=== PATIENT | female | born 1990 | race African-American/Black ===

== ENCOUNTER 2019-03-11 20:05 | Emergency (ER) | payer MEDICAID ==
[~2019-03-11] VITALS: Ht 165.1 cm; Wt 61.2 kg
[~2019-03-11 20:05] MED LIST: ATIVAN1 MG ORAL; DEPAKOTE500 MG PO; FOLIC ACID1 MG ORAL; QUETIAPINE FUM100 MG ORAL
--- NOTE | 2019-03-11 20:10 | NUR ---
ED Nurse Note: Recieved pt JULITA from home with c/o seizures x 30 today, pt is on gurney awake, alert and oriented x 4 and yelling to give her morphine medication, pt is non-cooperative, denies cp, no sob or labored breathing, no s/s of post ictal state, pt gowned and assisted to [place], side rails padded and placed on seizure precautions, will resume care as ordered and closely monitor.
--- NOTE | 2019-03-11 21:02 | Emergency Room Report ---
History of Present Illness General Chief Complaint: Pain Source: Patient, Medical Record, EMS Present Illness HPI Is a 28-year-old female coming from store with chief complaint of body pain. She told EMS that she has body pain all day. Here she requested morphine. When I examine her, she told me that she had a history of seizure and had 22 seizure today. She said that she has nausea and vomiting. Says she cannot take her Depakote even though she is allergic to Depakote. She denies any other trauma. No oral trauma. No incontinence of bowel or urine. No fever chills. Denies any other complaint. Allergies: Coded Allergies: DIVALPROEX SODIUM (Verified Allergy, Unknown, 01/19/12) Patient History Past Medical History: see triage record, old chart reviewed Nursing Documentation-[facility] Past Medical History: No History, Except For Hx Hypertension: Yes History Of Psychiatric Problem: Yes Hx Seizures: Yes Review of Systems Eye: Denies: eye pain, blurred vision ENT: Denies: ear pain, nose congestion, throat swelling Respiratory: Denies: cough, shortness of breath Cardiovascular: Denies: chest pain, palpitations Gastrointestinal: Denies: abdominal pain, diarrhea, nausea, vomiting Musculoskeletal: Denies: back pain, joint pain Skin: Denies: rash Neurological: Denies: headache, numbness Endocrine: Denies: increased thirst, increased urine Hematologic/Lymphatic: Denies: easy bruising All Other Systems: negative except mentioned in HPI Physical Exam Vital Signs Date Time Temp Pulse Resp B/P (MAP) Pulse Ox O2 Delivery O2 Flow Rate FiO2 03/11/19 20:02 98.6 108 16 129/89 (102) 99 Room Air Vitals normal Sp02 EP Interpretation: reviewed, normal General Appearance: well appearing, no apparent distress, alert Head: normocephalic, atraumatic Eyes: bilateral eye PERRL, bilateral eye EOMI ENT: hearing grossly normal, normal pharynx Neck: full range of motion, supple, no meningismus Respiratory: chest non-tender, lungs clear, normal breath sounds Cardiovascular #1: regular rate, rhythm, no murmur Gastrointestinal: normal bowel sounds, non tender, no mass, no organomegaly, no bruit, non-distended Musculoskeletal: back normal, gait/station normal, normal range of motion Psychiatric: other - Flat affect Medical Decision Making Diagnostic Impression: Primary Impression: Pain ER Course Patient complaining of body pain and seizure. I doubt that she had any seizure. She says she is want to go to sleep and requesting morphine shots. Vitals are unremarkable. Will discharge home. I suspect this is more psychogenic than true seizure. Chest X-Ray Diagnostic Results Chest X-Ray Diagnostic Results : Chest X-Ray Ordered: Yes # of Views/Limited/Complete: 1 View Indication: Chest Pain EP Interpretation: Yes Interpretation: no consolidation, no effusion, no pneumothorax, no acute cardiopulmonary disease Impression: No acute disease Electronically Signed by: Richard Sam MD CT/MRI/US Diagnostic Results CT/MRI/US Diagnostic Results : Imaging Test Ordered: CT head Impression Negative per radiologist Last Vital Signs Date Time Temp Pulse Resp B/P (MAP) Pulse Ox O2 Delivery O2 Flow Rate FiO2 03/11/19 20:02 98.6 108 16 129/89 (102) 99 Room Air Status: improved Disposition: HOME, SELF-CARE Condition: Stable Additional Instructions: Follow-up with your doctor in 7 days. Abstain from any drugs or alcohol. Return if symptoms worsen. Richard Sam MD Mar 11, 2019 21:02
--- NOTE | 2019-03-11 21:08 | Diagnostic Imaging Report ---
Indications: Dizziness and seizures Technique: Spiral acquisitions obtained through the brain. Angled axial and coronal 5 x 5 mm slices were reconstructed. Total dose length product 1334 mGycm. CTDI vol(s) 60 mGy. Dose reduction achieved using automated exposure control Comparison: None. Findings: No acute intracranial hemorrhage or edema. No mass effect or midline shift. Normal noguera-white differentiation. Normal size ventricles and extra axial CSF spaces. Visualized orbits are unremarkable. There is minimal mucosal thickening or polyposis in the left maxillary sinus. The mastoids are clear. The calvarium is intact Impression: Negative This agrees with the preliminary interpretation provided overnight by [facility]erad[facility] service. The CT scanner at [facility] is accredited by the [employer] and the scans are performed using protocols designed to limit radiation exposure to as low as reasonably achievable to attain images of sufficient resolution adequate for diagnostic evaluation.
[2019-03-11 21:45] VITALS: BP 124/87
--- NOTE | 2019-03-11 21:45 | NUR ---
ED Nurse Note: Pt being D/C to home, awake, alert and oriented x 4, ambulatory, pt given food and juice, tolerated well, pt states her mother is coming to get her, pt deneis cp, sob, or pain at this time, no sz activity noted, pt given f/u info and after care instructions, pt re-verbalizes importance for f/u and s/s to continue to monitor for, pt left ambulating with steady gait, nad noted during d/c to home.
--- NOTE | 2019-03-12 14:01 | Cardiology Report ---
APPROVED REPORT EKG Measurement Heart [id number] Sinus tachycardia Nonspecific T wave abnormality Abnormal ECG
--- NOTE | 2019-03-12 17:02 | Diagnostic Imaging Report ---
Indication: Chest pain, cough Technique: One view of the chest Comparison: none Findings: No acute infiltrates, effusions, or congestion. Tortuous calcified aorta. Normal heart size. Upper mediastinum unremarkable. Impression: No acute process.
== END 2019-03-11 22:00 | disposition home or self-care (01) ==
LOC: EDBD 20:05 → EMR 20:20
DX: R52 Pain, unspecified (principal); R07.9 Chest pain, unspecified; I10 Essential (primary) hypertension; Z88.8 Allergy status to other drugs, medicaments and biological substances; R42 Dizziness and giddiness; R56.9 Unspecified convulsions
CPT/HCPCS: 70450; 71045; 93005; Z7502; 99284

== ENCOUNTER 2019-03-12 00:18 | Emergency (ER) | payer MEDICAID ==
[~2019-03-12] VITALS: Ht 165.1 cm; Wt 56.7 kg
--- NOTE | 2019-03-12 00:39 | NUR ---
ED Nurse Note: patient ambulated to ed with behavioural complaint. patient discharged from d ed 2200. patient denies hi, si, and pain. patient states 'i just want to sleep'. provided pt with blanket and nourishment. ao4. nad. vss.
[2019-03-12 00:43] VITALS: BP 104/68
--- NOTE | 2019-03-12 01:18 | Emergency Room Report ---
History of Present Illness General Chief Complaint: Behavioral Complaint Source: Patient Present Illness HPI Is a 28-year-old female whom I just discharged. She was in the waiting room and is out of check back in. She she came by ambulance from a store. She claimed that she is not homeless. She was waiting in the waiting room and wanted a place to lay down so she checked in. She claimed that she has abdominal pain and both suicidal. She has no particular plan. Even though she has abdominal pain she ate and drank here without any problem. She refused to give any blood work or urine. When I asked if she is taking any drugs, she is to answer. She is requesting morphine. No other complaint. Allergies: Coded Allergies: DIVALPROEX SODIUM (Verified Allergy, Unknown, 01/19/12) Patient History Past Medical History: see triage record, old chart reviewed Past Surgical History: none Pertinent Family History: none Last Menstrual Period: 03/01/19 Now: No : 1 Para: 1 Immunizations: other Reviewed Nursing Documentation: PMH: Agreed; PSxH: Agreed Nursing Documentation-[facility] Past Medical History: No History, Except For Hx Hypertension: Yes Hx Diabetes: Yes Hx Seizures: Yes Review of Systems Eye: Denies: eye pain, blurred vision ENT: Denies: ear pain, nose congestion, throat swelling Respiratory: Denies: cough, shortness of breath Cardiovascular: Denies: chest pain, palpitations Gastrointestinal: Reports: abdominal pain; Denies: diarrhea, nausea, vomiting Musculoskeletal: Denies: back pain, joint pain Skin: Denies: rash Neurological: Denies: headache, numbness Endocrine: Denies: increased thirst, increased urine Hematologic/Lymphatic: Denies: easy bruising All Other Systems: negative except mentioned in HPI Physical Exam Vital Signs Date Time Temp Pulse Resp B/P (MAP) Pulse Ox O2 Delivery O2 Flow Rate FiO2 03/12/19 00:19 99.0 123 17 104/68 (80) 95 Room Air Vitals normal Sp02 EP Interpretation: reviewed, normal General Appearance: well appearing, no apparent distress, alert Head: normocephalic, atraumatic Eyes: bilateral eye PERRL, bilateral eye EOMI ENT: hearing grossly normal, normal pharynx Neck: full range of motion, supple, no meningismus Respiratory: chest non-tender, lungs clear, normal breath sounds Cardiovascular #1: regular rate, rhythm, no murmur Gastrointestinal: normal bowel sounds, non tender, no mass, no organomegaly, no bruit, non-distended Musculoskeletal: back normal, gait/station normal, normal range of motion Psychiatric: mood/affect normal Medical Decision Making Diagnostic Impression: Primary Impression: Behavioral disorder Additional Impression: Abdominal pain Qualified Codes: R10.84 - Generalized abdominal pain ER Course [place] with abdominal pain and behavior disorder. She has no particular plan for suicide. She may have be on opiates or other drug use. She refused a urine sample. She is want a place to sleep and something to eat. I told patient will let her sleep. Discharge in the morning. I see no evidence of acute abdomen. Before she left here, she was eating and drinking without any problem. I see no evidence of an acute abdomen. Last Vital Signs Date Time Temp Pulse Resp B/P (MAP) Pulse Ox O2 Delivery O2 Flow Rate FiO2 03/12/19 00:43 98 17 Room Air 03/12/19 00:43 99.0 104/68 95 Status: improved Disposition: HOME, SELF-CARE Condition: Stable Referrals: NON PHYSICIAN (PCP) Patient Instructions: Self-Destructive Behavior Additional Instructions: Follow-up with your doctor in 7 days. Stop going to different hospital for pain medication. Return worse. Richard Sam MD Mar 12, 2019 01:18
--- NOTE | 2019-03-12 01:47 | NUR ---
ED Nurse Note: patient sleeping in bed with no acute distress. respirations even and unlabored
[2019-03-12 03:00] VITALS: BP 110/68
--- NOTE | 2019-03-12 03:00 | NUR ---
ED Nurse Note: patient sleeping in bed with no acute distress. respirations even and unlabored
[2019-03-12 05:00] VITALS: BP 114/71
--- NOTE | 2019-03-12 05:00 | NUR ---
ED Nurse Note: PATIENT AWAKE ALERT AND ORIENT X4. PATIENT STATES SHE WANTS TO GO HOME NOW. DENIES BEING HOMELESS; ADDRESS ON FILE. PROVIDED NOURISHMENT. AMBULATES STEADY
[2019-03-12 05:14] VITALS: BP 114/71
--- NOTE | 2019-03-12 05:15 | NUR ---
ER DISCHARGE NOTE: Patient is cleared to be discharged per ERMD, pt is aox4, on room air, with stable vital signs. pt was given dc and prescription instructions, pt was able to verbalize understanding, pt id band. pt is able to ambulate with steady gait. pt took all belongings.
== END 2019-03-12 05:16 | disposition home or self-care (01) ==
LOC: EMR 00:36
DX: R10.84 Generalized abdominal pain (principal); F91.9 Conduct disorder, unspecified; E11.9 Type 2 diabetes mellitus without complications; I10 Essential (primary) hypertension; Z91.048 Other nonmedicinal substance allergy status
CPT/HCPCS: 99283